=== PATIENT | female | born 1960 | race African-American/Black ===

== ENCOUNTER → 2016-08-13 | Outpatient (CLI) | payer BC ==
[~2016-08-13] MED LIST: LOPRESSOR PO
--- NOTE | ~2016-08-13 | EKG ---
PATIENT: BOB KONG UNIT #: [id number] Ventricular Rate: 80 BPM Atrial Rate: 80 BPM P-R Interval: 150 ms QRS Duration: 86 ms Q-T Interval: 370 ms QTC Calculation(Bezet): 426 ms P [place]: 69 degrees Calculated R [place]: 29 degrees Calculated T [place]: 34 degrees Diagnosis Line: Normal sinus rhythm Diagnosis Line: Normal ECG Diagnosis Line: No previous ECGs available Diagnosis Line: Confirmed by NITISH MATHIAS MD ([id number]) on Diagnosis Line: 08/13/2016 4:39:50 PM INTERPRETING MD: STEW DEXTER
== END | disposition home or self-care (01) ==
LOC: CEKG 10:23
DX: F41.1 Generalized anxiety disorder (principal)
CPT/HCPCS: 93005